=== PATIENT | male | born 1980 | race Caucasian/White ===

== ENCOUNTER 2024-03-01 10:26 | Emergency (ER) | payer OTHER, SELFPAY ==
[2024-03-01 10:34] VITALS: BP 153/89
[2024-03-01 11:18] VITALS: BMI 27.3
[2024-03-01 11:23] LABS: % Basophils 1.1 % (0-2); % Eosinophils 3.8 % (0-6); % Immature Granulocytes 0.5 % (0-0.5); % Lymphocytes 35.7 % (20.5-51.1); % Monocytes 6.3 % (1.7-9.3); % Neutrophils 52.6 % (42.2-75.2); Absolute Basophils 0.1 10^3/uL (0-0.2); Absolute Eosinophils 0.2 10^3/uL (0-0.7); Absolute Monocytes 0.4 10^3/uL (0.1-0.6); Absolute Neutrophils 2.9 10^3/uL (1.4-6.5); Hematocrit 39.8 % (39.0-52.0); Hemoglobin 13.8 g/dL (13.0-18.0); Mean Corp Hgb Conc. 34.7 g/dL (33.0-37.0); Mean Corpuscular Hgb 29.1 pg (27.0-31.0); Mean Corpuscular Volume 83.8 fL (80.0-94.0); Mean Platelet Volume 10.3 fL (7.4-10.4); Nucleated Red Blood Cells % 0 % (-); Platelet Count 235 10^3/uL (130-400); Red Blood Cell Count 4.75 10^6/uL (4.70-6.10); Red Cell Dist. Width 12.9 % (11.5-14.5); White Blood Cell Count 5.6 10^3/uL (4.8-10.8)
--- NOTE | 2024-03-01 11:27 | ED.GENMED ---
History of Present Illness
General
Chief Complaint: Skin Problem
Source: patient
Time Seen by Provider: 03/01/24 10:47
Travel History
Have you had any contact with someone who has COVID-19?: No
Do you have any symptoms of coronavirus? Fever > 100 degrees, chills, cough, shortness of breath, sore throat, loss of taste or smell, muscle aches, or headache?: No
History of Present Illness
History of Present Illness:
43-year-old male with past medical history of GERD presenting to the emergency department for evaluation of right thigh erythema, tenderness and discomfort that started about 2 days ago. Patient went to urgent care yesterday and was diagnosed with
a suspected cellulitis and was started on Keflex but was also given some Valtrex as he states there was a small blister that had formed and they were not sure if it was may be the beginning of a shingles rash. Patient states that the pain and
discomfort seem to be improved however he was concerned with a little bit of increased erythema prompting him to come to the emergency department further evaluated. Patient denies any fevers, sores or any history of similar. Patient does note that
he was recently in [place] on vacation and had gotten bitten a couple times by bugs and believes that the symptoms may have been aggravated by scratching the area.
Past History
Past History
ED Past Medical History: GERD
ED Past Surgical History: None
Social History
Tobacco: Other (Uses marijuana vape several times/week)
Alcohol: Occasional
Drug: None
Personal:
Living: with family
Employment: Employed
Family History
Family History: Negative Diabetes, Hypertension, Early CAD, Asthma or Cancer
Review of Systems
Review of Systems
All Other Systems: ROS reviewed and negative except as documented in HPI and ROS
Phy Exam
Physical Exam
Physical Exam:
GENERAL: Alert , in no apparent distress
EYE: conjunctiva clear
Head: Normocephalic atraumatic
NECK: Supple,
ENT: mmm.
LUNGS: no acute respiratory distress
NEUROLOGICAL: Alert and oriented
SKIN: Warm and dry, right inner thigh just above the patella has area of erythema measuring approximately 5 cm in height and 2 cm in width. Central area with slightly darker erythema. Warm to the touch, minimal induration, no fluctuance, mildly
tender. No streaking/lymphangitis
MUSCULOSKELETAL: well perfused.
PSYCH: Normal and appropriate interaction.
Scores
Heart Failure Risk
Heart Failure Risk Score: Not Applicable
Heart Score for Chest Pain Patients
STEMI patient?: Not applicable
Withdrawal Assessment of Alcohol
Withdrawal Assessment Completed?: Not applicable
Course
Orders/Labs/Results
Orders:
Orders
03/01/24 11:02
Basic Metabolic Panel Urgent
Complete Blood Count/With Diff Urgent
Lyme Progressive Urgent
Abnormal Lab Results
03/01/24
11:02
Chloride 109 H mmol/L
(98-107)
Glucose 100 H mg/dl
(70-99)
03/01/24 11:02
03/01/24 11:02
Vital Signs
Initial and Last Documented VS:
Initial Vital Signs
Temp Pulse Resp BP Pulse Ox
98.8 F 93 18 153/89 98
03/01/24 10:34 03/01/24 10:34 03/01/24 10:34 03/01/24 10:34 03/01/24 10:34
Last Documented Vital Signs
Temp Pulse Resp BP Pulse Ox
98.8 F 93 18 153/89 98
03/01/24 10:34 03/01/24 10:34 03/01/24 10:34 03/01/24 10:34 03/01/24 10:34
MDM/Problems Addressed
Differential Diagnosis Includes:
Cellulitis, contact dermatitis, Lyme
MDM/Problems Addressed:
43-year-old male presenting the emergency department for evaluation of erythema to the right inner thigh. Area appears to be most consistent with a mild cellulitis. I do not visualize any vesicles or any part of the rash that would be consistent a
shingles infection. Since patient had already started the Valtrex advise he just continue and finish this ultimately. He is without any fevers or abnormal vital signs. I do feel it is reasonable to continue outpatient management with p.o. Keflex.
Return precautions discussed. Prior to discharge will check labs including a Lyme titer. Anticipate continued outpatient management.
*Pulse Oximetry
Patient hypoxic: no
*Critical Care Note
Total Time (30-74mins, 75-104mins- exclusive of procedures): Not Applicable
Comment
Comment:
Patient's labs are unremarkable. He will be notified if any abnormalities on the Lyme titer. Stable for discharge home. Will continue Keflex.
ED Attending Note
-
Portions of this chart may have been created with voice recognition software.� Occasional wrong word or��sound alike� substitutions may have occurred due to the inherent limitations of voice recognition software.
Discharge Plan
Departure
Patient Disposition: Home (Routine Discharge)
Date of Disposition: 03/01/24
Time of Disposition: 12:00
Patient with high blood pressure during this ER visit?: Yes
Discharge Problem:
Cellulitis of right thigh
Instructions: Cellulitis (Skin Infection), Adult (DC)
Prescriptions:
No Action
famotidine 40 MG tablet
40 mg PO HS Qty: 14 0RF
meclizine 25 MG tablet
25 mg PO Q8H Qty: 30 0RF
Referrals:
Jaki Suarez DO [Family Provider] -
Interventions
Interventions:
*Risk Screen - Suicide Last Done: 03/01/24 11:18
*General Assessment Last Done: 03/01/24 11:18
*Neglect/Abuse Screening Last Done: 03/01/24 11:18
ED- Fall Risk Assessment Last Done: 03/01/24 11:18
*ED COVID-19 Vaccine History Last Done: 03/01/24 10:34
*Nursing Disposition Last Done: 03/01/24 12:03
ED-Skin Assessment Last Done: 03/01/24 11:18
Discharge Date and Time
Discharge Date/Time: 03/01/24 12:03
Print Language: INDIAN
[2024-03-01 11:38] LABS: Blood Urea Nitrogen 13 mg/dl (9-20); Calcium 9.1 mg/dl (8.4-10.2); Carbon Dioxide 24 mmol/L (22-30); Chloride 109 mmol/L (98-107); Estimated Creatinine Clearance 94 ml/min; Glucose 100 mg/dl (70-99); Potassium 4.1 mmol/L (3.5-5.1); Sodium 141 mmol/L (135-145); eGFR > 60.00
[2024-03-02 14:14] LABS: Lyme Antibody Screen, EIA Negative (Negative)
== END 2024-03-01 12:03 | disposition home or self-care (01) ==
LOC: EMR 10:26
PROVIDERS: Physician Assistant Medical; EMERGENCY PHYSICIAN Emergency Medicine; FAMILY PHYSICIAN Internal Medicine
DX: L03.115 Cellulitis of right lower limb (principal); F17.290 Nicotine dependence, other tobacco product, uncomplicated; K21.9 Gastro-esophageal reflux disease without esophagitis; R03.0 Elevated blood-pressure reading, without diagnosis of hypertension
CPT/HCPCS: 99283; 80048; 85025; 86618